=== PATIENT | male | born 1955 | race Caucasian/White ===

== ENCOUNTER → 2017-11-05 | Outpatient (CLI) | payer MEDICARE ==
[~2017-11-05] MED LIST: AMBIEN CR12.5 MG PO; ATIVAN0.5 MG PO; ATIVAN1 MG PO; BACTRIM DS 8001 TA1 PO; CIALIS2.5 MG PO; DEPO TESTOS200 MG/ML IM; EFFEXOR XR75 MG PO; FISH OIL CONC1000 M1 PO; HYDROCODONE BIT1 T11 PO; L-LYSINE500 M2 PO; LISINOPRIL10 M1 PO; RANITIDINE HCL150 M1 PO; VENLAFAXINE HYD75 MG PO; VIT B6 PO; VIT C PO; VIT D PO
[2017-11-05 10:54] LABS: BASO % 0.3 % (0.0-1.0); EOS # 0.1 10*3/uL (0.0-0.4); EOS % 1.6 % (1.0-4.0); HEMATOCRIT 49.2 % (42.0-52.0); HEMOGLOBIN 15.6 g/dl (14.0-18.0); LYMPH # 1.5 10*3/uL (1.3-4.4); LYMPH % 23.9 % (27.0-41.0); MEAN CELL VOLUME 95.5 fl (80.0-94.0); MEAN CORPUSCULAR HGB 30.3 pg (27.0-31.0); MEAN CORPUSCULAR HGB CONC 31.7 g/dl (33.0-37.0); MEAN PLATELET VOLUME 9.5 fl (9.6-12.3); MONO # 0.4 10*3/uL (0.1-1.0); MONO % 6.5 % (3.0-9.0); NEUT # 4.1 10*3/uL (2.3-7.9); NEUT % 67.4 % (47.0-73.0); PLATELET COUNT AUTOMATED 211 10*3/uL (130-400); RED BLOOD COUNT 5.15 10*6/uL (4.50-5.90); RED CELL DISTRI WIDTH 12.7 % (0-14.5); WHITE BLOOD COUNT 6.1 10*3/uL (4.8-10.8)
[2017-11-05 11:23] LABS: ALBUMIN 3.6 gm/dl (3.1-4.5); ALKALINE PHOSPHATASE 79 U/L (45-117); BUN 13 mg/dl (7-24); CHLORIDE 106 mmol/L (98-107); CHOLESTEROL 220 mg/dL (<200); CREATININE 1.23 mg/dL (0.70-1.30); HDL CHOLESTEROL 41 mg/dl (40-60); LDL CHOLESTEROL 148 mg/dL (9-159); POTASSIUM 4.5 mmol/L (3.5-5.1); SGOT/AST 15 IU/L (3-35); SGPT/ALT 35 U/L (12-78); SODIUM 141 mmol/L (136-145); TOTAL PROTEIN 6.9 gm/dL (6.4-8.2); TRIGLYCERIDES 154 mg/dl (<150); VLDL CHOLESTEROL 31 mg/dL (6-40)
[2017-11-07 11:05] LABS: TESTOSTERONE FREE, (DIRECT) 12.2 pg/mL (6.6-18.1)
== END | disposition home or self-care (01) ==
LOC: LAB 10:17
PROVIDERS: Internal Medicine
DX: I10 Essential (primary) hypertension (principal); G44.209 Tension-type headache, unspecified, not intractable; F52.21 Male erectile disorder; E66.3 Overweight

== ENCOUNTER → 2018-10-08 | Outpatient (CLI) | payer OTHER | END | disposition home or self-care (01) | LOC: CT 12:50 | DX: K42.9 Umbilical hernia without obstruction or gangrene (principal); K76.0 Fatty (change of) liver, not elsewhere classified; K57.30 Diverticulosis of large intestine without perforation or abscess without bleeding; N40.0 Benign prostatic hyperplasia without lower urinary tract symptoms ==

== ENCOUNTER → 2019-02-06 | Outpatient (CLI) | payer OTHER ==
[~2019-02-06] MED LIST changes: +AMBIEN CR6.25 MG PO; +ASPIRIN ADULT L81 M1 PO; +FLOMAX0.4 MG PO; +LIPITOR40 MG PO; +LOPRESSOR50 M1 PO; +PLAVIX75 M1 PO; +REMERON15 M2 PO
== END | disposition home or self-care (01) ==
LOC: LAB 10:55
DX: R97.20 Elevated prostate specific antigen [PSA] (principal)

== ENCOUNTER 2019-03-11 14:12 | Inpatient (IN) | payer OTHER ==
[2019-03-11] VITALS (8 sets, daily range): BP systolic 90–128; BP diastolic 54–71
[~2019-03-11] VITALS: Ht 182.8 cm; Wt 105.9 kg
[~2019-03-11 14:12] MED LIST changes: -AMBIEN CR6.25 MG PO; -ASPIRIN ADULT L81 M1 PO; -FLOMAX0.4 MG PO; -LIPITOR40 MG PO; -LOPRESSOR50 M1 PO; -PLAVIX75 M1 PO; -REMERON15 M2 PO
--- NOTE | 2019-03-11 14:45 | NUR ---
PATIENT STATES HE CANNOT URINATE AT THIS TIME FOR SPEICMEN. REFUSING CATHETER.
--- NOTE | 2019-03-11 14:46 | NUR ---
PATIENT DENIES ANY WOUNDS TO PATIENT.
--- NOTE | 2019-03-11 14:48 | NUR ---
PATIENT TO CT SCAN AT THIS TIME.
--- NOTE | 2019-03-11 14:56 | NUR ---
PATIENT RETURNS FROM CT SCAN AT THIS TIME.
[2019-03-11 15:25] LABS: HEMATOCRIT 36.1 % (42.0-52.0); HEMOGLOBIN 12.2 g/dl (14.0-18.0); MEAN CELL VOLUME 90.7 fl (80.0-94.0); MEAN CORPUSCULAR HGB 30.7 pg (27.0-31.0); MEAN CORPUSCULAR HGB CONC 33.8 g/dl (33.0-37.0); MEAN PLATELET VOLUME 9.9 fl (9.6-12.3); PLATELET COUNT AUTOMATED 151 10*3/uL (130-400); RED BLOOD COUNT 3.98 10*6/uL (4.50-5.90); RED CELL DISTRI WIDTH 12.6 % (0-14.5); WHITE BLOOD COUNT 4.3 10*3/uL (4.8-10.8)
[2019-03-11 15:26] LABS: ALBUMIN 3.3 gm/dl (3.1-4.5); CREATININE 1.59 mg/dL (0.70-1.30); POTASSIUM 2.9 mmol/L (3.5-5.1); TOTAL PROTEIN 6.8 gm/dL (6.4-8.2)
[2019-03-11 15:30] LABS: PLATELET SUFFICIENCY NORMAL (NORMAL); TOTAL CELLS COUNTED 100 #CELLS
--- NOTE | 2019-03-11 15:32 | NUR ---
LAB CALLED WITH CRITICAL LACTIC OF 4.2. DOCTOR NOTIFIED.
--- NOTE | 2019-03-11 15:45 | NUR ---
PATIENT IS CURRENTLY UPRIGHT IN BED AT THIS TIME SPEAKING FULL SENTENCES. PATIENT APPEARS TO BE A&OX4 NOW. STATES THAT HE FEELS BETTER. REQUESTING A MEAL TRAY.
--- NOTE | 2019-03-11 16:20 | NUR ---
DR NOTIFIED OF PATIENT TEMP. DENIES WANTING TO GIVE HIM ANY MORE TYLENOL OR MOTRIN.
--- NOTE | 2019-03-11 17:08 | NUR ---
PATIENT TAKEN UP AT THIS TIME BY THIS NURSE. NO CHANGE IN STATUS.
--- NOTE | 2019-03-11 17:25 | NUR ---
A 64, admitted to , under the services of ANGELA Gregory MD with a diagnosis of SEPSIS. Chief complaint is FEVER. Patient arrived via stretcher from ER. Monitor applied. Initial assessment completed. Vital signs taken and recorded. ANGELA GREGORY MD notified of admission to the unit. Orders received. See assessment for past medical history, medications and allergies. Patient and/or family oriented to unit. [address] visitation policy reviewed. Clothing/patient valuable form completed. JOSE ANNE
[2019-03-11] MEDS ORDERED: PLAVIX75 M1 PO (17:50)
[2019-03-11] MEDS ORDERED: LOPRESSOR50 M1 PO (17:51)
[2019-03-11] MEDS ORDERED: ASPIRIN ADULT L81 M1 PO (17:56)
[2019-03-11] MEDS ORDERED: LIPITOR40 MG PO (18:00)
[2019-03-11] MEDS ORDERED: FLOMAX0.4 MG PO (18:01)
[2019-03-11] MEDS ORDERED: AMBIEN CR6.25 MG PO (18:02)
[2019-03-11] MEDS ORDERED: REMERON15 M2 PO (18:06)
[2019-03-11 19:59] LABS: BILIRUBIN NEGATIVE (NEGATIVE); BLOOD 3+ (NEGATIVE); CLARITY CLOUDY (CLEAR); COLOR YELLOW (YELLOW); GLUCOSE NEGATIVE (NEGATIVE); KETONE TRACE (NEGATIVE); LEUKO ESTERASE 3+ (NEGATIVE); NITRITE NEGATIVE (NEGATIVE); UROBILINOGEN 0.2 E.U./dl (0.2-1.0)
--- NOTE | 2019-03-11 20:09 | NUR ---
DR HERNANDEZ NOTIFIED OF [place]
[2019-03-11 20:13] LABS: BACTERIA 2+; RBC 41-50 rbc/hpf (0-2); WBC 51-100 wbc/hpf (0-5)
[2019-03-12] VITALS: BP 121/89
--- NOTE | 2019-03-12 01:50 | NUR ---
PATIENT GIVEN NORCO PER REQUEST AT THIS TIME FOR CHRONIC PAIN FROM HX BROKEN BACK. PATIENT ALSO C/O CHILLS, TEMPERATURE 98.7/SKIN WARM/DRY. WARM BLANKETS OFFERED, DECLINED. WILL CONT TO MONITOR.
--- NOTE | 2019-03-12 04:50 | NUR ---
DR HERNANDEZ NOTIFIED OF +. NEW ORDERS FOR LEVAQUIN IV DAILY
[2019-03-12 07:13] LABS: HEMATOCRIT 33.1 % (42.0-52.0); HEMOGLOBIN 10.9 g/dl (14.0-18.0); MEAN CELL VOLUME 93.2 fl (80.0-94.0); MEAN CORPUSCULAR HGB 30.7 pg (27.0-31.0); MEAN CORPUSCULAR HGB CONC 32.9 g/dl (33.0-37.0); MEAN PLATELET VOLUME 9.8 fl (9.6-12.3); PLATELET COUNT AUTOMATED 140 10*3/uL (130-400); RED BLOOD COUNT 3.55 10*6/uL (4.50-5.90); RED CELL DISTRI WIDTH 12.9 % (0-14.5); WHITE BLOOD COUNT 8.3 10*3/uL (4.8-10.8)
[2019-03-12 07:54] LABS: BURR CELLS FEW; PLATELET SUFFICIENCY NORMAL (NORMAL); POLYCHROMASIA SLIGHT; ROULEAUX SLIGHT; TOTAL CELLS COUNTED 100 #CELLS
--- NOTE | 2019-03-12 09:00 | NUR ---
Service Tech/Welder in to talk to patient. Patient states lives at home with his and youngest daughter. There are 15 steps in the home. Physician: Dr. Sherie Reeves Pharmacy: [facility] [place] Home health services: none Patient's level of ADLs: INDEPENDENT Patient has working utilities: yes DME: none Follow-up physician's appointment after d/c: he prefers to make his won follow up appt after discharge Does patient want to access PORTAL?: no Discharge plan discussed with patient. He lives at home with his and youngest daughter. He is independent in his ADLs and ambulation. Discussed home health care services and he denies any home needs at this time. When medically stable he will be discharged to home. He states Dr. Reeves said he would be discharged on Friday. BC GNB, +UTI, lactic acid elevated, rocephin. His daughter or will provide transportation on discharge. RUMA WILLETT
[2019-03-12 12:00] VITALS: BP 105/47
[2019-03-12 16:00] VITALS: BP 126/69
[2019-03-12 20:00] VITALS: BP 131/73
--- NOTE | 2019-03-12 20:00 | NUR ---
AWAKE & ALERT. LEAD OFF; REPLACED. IV FLUIDS INFUSING INTO RIGHT ARM WITHOUT DIFFICULTY. SITE WRAPPED DUE TO PATIENT PULLING OUT IV'S. PT. VOICES NO C/O AT THIS TIME; NO DISTRESS NOTED. CALL LIGHT WITHIN REACH.
[2019-03-13] VITALS: BP 143/71
--- NOTE | 2019-03-13 04:00 | NUR ---
RESTING IN BED WITH EYES CLOSED. IV FLUIDS INFUSING ORDERED. CALL LIGHT WITHIN REACH.
[2019-03-13 06:17] LABS: BASO % 0.1 % (0.0-1.0); EOS # 0.1 10*3/uL (0.0-0.4); EOS % 1.2 % (1.0-4.0); HEMOGLOBIN 10.1 g/dl (14.0-18.0); LYMPH % 14.1 % (27.0-41.0); MEAN CELL VOLUME 92.5 fl (80.0-94.0); MEAN CORPUSCULAR HGB 30.1 pg (27.0-31.0); MEAN CORPUSCULAR HGB CONC 32.6 g/dl (33.0-37.0); MEAN PLATELET VOLUME 9.8 fl (9.6-12.3); MONO # 0.7 10*3/uL (0.1-1.0); MONO % 9.7 % (3.0-9.0); NEUT # 5.1 10*3/uL (2.3-7.9); NEUT % 74.2 % (47.0-73.0); PLATELET COUNT AUTOMATED 132 10*3/uL (130-400); RED BLOOD COUNT 3.35 10*6/uL (4.50-5.90); RED CELL DISTRI WIDTH 12.9 % (0-14.5); WHITE BLOOD COUNT 6.8 10*3/uL (4.8-10.8)
[2019-03-13 06:44] LABS: ALBUMIN 2.6 gm/dl (3.1-4.5); ALKALINE PHOSPHATASE 67 U/L (45-117); BUN 15 mg/dl (7-24); CHLORIDE 111 mmol/L (98-107); CREATININE 1.19 mg/dL (0.70-1.30); POTASSIUM 3.6 mmol/L (3.5-5.1); SGOT/AST 66 IU/L (3-35); SGPT/ALT 81 U/L (12-78); SODIUM 140 mmol/L (136-145); TOTAL PROTEIN 5.9 gm/dL (6.4-8.2)
[2019-03-13 08:00] VITALS: BP 124/70
[2019-03-13 12:00] VITALS: BP 104/56
--- NOTE | 2019-03-13 12:17 | NUR ---
Discharge instructions reviewed with patient/family. Patient receptive and verbalizes understanding. Follow-up care arranged. Written instructions given to patient/family. PASTORA RIDLEY
[2019-03-13 16:00] VITALS: BP 114/56
[2019-03-13 20:00] VITALS: BP 133/68
--- NOTE | 2019-03-13 21:40 | NUR ---
PATIENT MEDICATED AT THIS TIME WITH NORCO FOR BACK PAIN A 09/07 AT THIS TIME
--- NOTE | 2019-03-13 22:20 | NUR ---
PATIENT STATED THAT HIS PAIN WAS BETTER A 3/10 AT THIS TIME. PATIENT ALERT AND ORIENTED, RESTING IN A POSITION OF COMFORT IN BED AT THIS TIME.
--- NOTE | 2019-03-13 23:25 | NUR ---
24 HOUR CHART CHECK COMPLETE
[2019-03-14] VITALS: BP 103/57
--- NOTE | 2019-03-14 06:59 | NUR ---
NOTIFIED BY [facility] OF POSITIVE BLOOD CULTURES FOR [facility] AT 0654. DR. HERNANDEZ NOTIFIED OF BLOOD CULTURE RESULTS, NO ORDERS RECEIVED.
--- NOTE | 2019-03-14 10:05 | NUR ---
MEDICATED WITH NORCO PER PRN ORDER FOR COMPLAINTS OF CHRONIC BACK PAIN. WILL MONITOR FOR EFFECTIVENESS.
[2019-03-14 12:00] VITALS: BP 134/71
--- NOTE | 2019-03-14 12:00 | NUR ---
PT RESTING IN BED, NO DISTRESS NOTED. EARLIER NORCO HELPED WITH BACK PAIN.
[2019-03-14 16:00] VITALS: BP 141/60
--- NOTE | 2019-03-14 16:03 | NUR ---
PT RESTING IN BED, NO DISTRESS NOTED.
--- NOTE | 2019-03-14 17:03 | NUR ---
MEDICATED WITH ZOFRAN PER PRN ORDER FOR COMPLAINTS OF NAUSEA. WILL MONITOR FOR EFFECTIVENESS.
[2019-03-14 20:00] VITALS: BP 151/77
--- NOTE | 2019-03-14 20:15 | NUR ---
PATIENT ASSESSMENT COMPLETED AT THIS TIME WITHOUT INCIDENT. PATIENT SEATED IN BED IN A POSITION OF COMFORT, RESPIRATIONS EASY AND NON-LABORED AT THIS TIME. FAMILY AT BEDSIDE. CALL LIGHT WITHIN REACH, WILL CONTINUE TO MONITOR.
--- NOTE | 2019-03-14 22:42 | NUR ---
PATIENT MEDICATED WITH PRN NORCO AT THIS TIME FOR PATIENT COMPLAINT OF 7/10 PAIN IN HIS LOWER BACK AND NECK. PATIENT ALERT AND ORIENTED. CALL LIGHT WITHIN REACH WILL CONTINUE TO MONITOR.
--- NOTE | 2019-03-14 23:24 | NUR ---
PATIENT RESTING IN BED IN A POSITION OF COMFORT IN BED, RESPIRATIONS EASY AND NON-LABORED AT THIS TIME. NO SIGNS OR SYMPTOMS OF PAIN NOTED. CALL LIGHT WITHIN REACH WILL CONTINUE TO MONITOR.
[2019-03-15] VITALS: BP 128/65
[2019-03-15 08:00] VITALS: BP 152/72
--- NOTE | 2019-03-15 08:30 | NUR ---
PT AWAKE, ALERT, & ORIENTED X3. LUNGS CLEAR T/O, ROOM AIR. ABD SOFT & NONTENDER. PT C/O NAUSEA AND MEDICATED WITH IV ZOFRAN PER ORDER. PER PATIENT, STOOLS HAVE BECOMRE MORE FORMED TODAY. NO EDEMA NOTED. AMBULATORY AROUND ROOM. CALL LIGHT WITHIN REACH.
--- NOTE | 2019-03-15 09:00 | NUR ---
[employer] Operator in to see patient. No new needs or request at this time. When medically stable he will be discharged to home. He denies any home needs. BC + for E. coli, on levaquin and rocephin. Elevated LFTs and lactic acid, Hgb 10.1 from 12.2.
--- NOTE | 2019-03-15 09:30 | NUR ---
PER PATIENT, NAUSEA MEDICINE HAS BEEN EFFECTIVE. NO FURTHER COMPLAINTS AT THIS TIME.
--- NOTE | 2019-03-15 10:41 | NUR ---
NORCO 1 TAB GIVEN PO PER REQUEST. PAIN RATED 8/10 ON PAIN SCALE. PATIENTS "THOBBING THROUGHOUT BACK AND WHOLE BODY". WILL CONTINUE TO ASSESS. TIM MCKAY SPJHONY
[2019-03-15 12:00] VITALS: BP 122/83
--- NOTE | 2019-03-15 12:00 | NUR ---
PER PATIENT, PAIN HAS BEEN IMPROVED. NORCO EFFECTIVE. NO FURTHER COMPLAINTS.
[2019-03-15 16:00] VITALS: BP 157/78
[2019-03-15 20:00] VITALS: BP 123/60
--- NOTE | 2019-03-15 20:00 | NUR ---
SITTING IN BED. RESPIRATIONS EASY. LUNGS DIMINISHED, CLEAR. PULSE OX 98% RA. C/O BURNING AND HESITATION UPON URINATION. CALL LIGHT WITHIN REACH. QUESTIONS/CONCERNS ADDRESSED. DAUGHTER PRESENT AT BEDSIDE
--- NOTE | 2019-03-15 21:16 | NUR ---
24 HR chart check completed.
--- NOTE | 2019-03-15 21:51 | NUR ---
REQUESTED AND RECEIVED NORCO PER PRN ORDER FOR COMPLAINTS OF CHRONIC BACK PAIN AND ABD PAIN RATING A 7. CALL LIGHT WITHIN REACH. WILL MONITOR FOR EFFECTIVENESS
--- NOTE | 2019-03-15 23:00 | NUR ---
MEDS EFFECTIVE. SLEEPING. RESPIRATIONS EASY. CALL LIGHT WITHIN REACH
[2019-03-16] VITALS: BP 136/64
--- NOTE | 2019-03-16 | NUR ---
SLEEPING WITH NO DISTRESS NOTED. RESPIRATIONS EASY. VSS. CALL LIGHT WITHIN REACH
--- NOTE | 2019-03-16 06:00 | NUR ---
SLEPT THROUGHOUT NIGHT WITH NO DISTRESS NOTED. RESPIRATIONS EASY. CALL LIGHT WITHIN REACH. NO VOICED COMPLAINTS THIS SHIFT
[2019-03-16 06:19] LABS: HEMATOCRIT 32.3 % (42.0-52.0); HEMOGLOBIN 10.8 g/dl (14.0-18.0); MEAN CELL VOLUME 91.8 fl (80.0-94.0); MEAN CORPUSCULAR HGB 30.7 pg (27.0-31.0); MEAN CORPUSCULAR HGB CONC 33.4 g/dl (33.0-37.0); MEAN PLATELET VOLUME 9.9 fl (9.6-12.3); PLATELET COUNT AUTOMATED 225 10*3/uL (130-400); RED BLOOD COUNT 3.52 10*6/uL (4.50-5.90); RED CELL DISTRI WIDTH 12.4 % (0-14.5)
[2019-03-16 06:47] LABS: ALBUMIN 2.8 gm/dl (3.1-4.5); ALKALINE PHOSPHATASE 86 U/L (45-117); BUN 13 mg/dl (7-24); CHLORIDE 111 mmol/L (98-107); CREATININE 1.01 mg/dL (0.70-1.30); POTASSIUM 3.9 mmol/L (3.5-5.1); SGOT/AST 44 IU/L (3-35); SGPT/ALT 93 U/L (12-78); SODIUM 142 mmol/L (136-145); TOTAL PROTEIN 6.5 gm/dL (6.4-8.2)
[2019-03-16 07:06] LABS: TOTAL CELLS COUNTED 100 #CELLS
[2019-03-16 07:07] LABS: PLATELET SUFFICIENCY NORMAL (NORMAL); POLYCHROMASIA SLIGHT
[2019-03-16 07:08] LABS: ROULEAUX SLIGHT
[2019-03-16 08:00] VITALS: BP 150/60
--- NOTE | 2019-03-16 10:30 | NUR ---
Industrial Furnace Fabricator in to see patient. No new needs or request at this time. When medically stable he will be discharged to home. He denies any home needs. BC + for E. coli, on levaquin and rocephin. Awaiting second set of BC results from 03/14.
[2019-03-16 12:00] VITALS: BP 144/63
[2019-03-16 16:00] VITALS: BP 158/77
[2019-03-16 20:00] VITALS: BP 140/58
--- NOTE | 2019-03-16 20:48 | NUR ---
PRN NORCO GIVEN PER PATIENT REQUEST FOR HEADACHE RATING A 6/10 AND ZOFRAN GIVEN FOR UPSET STOMACH. CALL LIGHT IS WITHIN REACH, WILL MONITOR EFFECT.
--- NOTE | 2019-03-16 21:27 | NUR ---
PRN NORCO AND ZOFRAN EFFECTIVE PER PATIENT. PRN REMERON GIVEN FOR C/O INSOMNIA. CALL LIGHT IS WITHN REACH. WILL MONITOR EFFECT.
--- NOTE | 2019-03-16 22:22 | NUR ---
PRN REMERON SEEMS EFFECTIVE, PATIENT IS SLEEPING WITH EASY AND REGULAR RESPERS ON ROOM AIR. CALL LIGHT IS WITHN REACH.
[2019-03-17] VITALS: BP 109/39
--- NOTE | 2019-03-17 06:17 | NUR ---
24 HR. CHART CHECK COMPLETE.
--- NOTE | 2019-03-17 06:30 | NUR ---
PATIENT SLEPT THROUGHOUT NIGHT WITH EASY AND REGULAR RESPERS ON ROOM AIR. CALL LIGHT IS WITHIN REACH.
--- NOTE | 2019-03-17 07:47 | NUR ---
VS STABLE- KERVIN, A&O X3, COLOR IS GOOD, SKIN IS WARM DRY AND INTACT, SKIN TURGOR IS NON-TENTING, CAPILLARY REFILL <3 SECONDS, HEART SOUNDS NORMAL, 72 BPM, LUNG SOUNDS DIMINISHED THROUGHOUT, PO2 97% ON ROOM AIR, ABDOMEN SOFT NON-DISTENDED NON-TENDER, BS X4, IV SITE RIGHT AC INTACT NO SIGN OR SYMPTOMS OF INFECTION, STATES PAIN AT "2/10", PATIENT PLEASANT AND COOPERATIVE, NO FURTHER COMPLAINTS AT THIS TIME WILL CONTINUE TO ASSESS. TIM MCKAY SPANDREACC
[2019-03-17 08:04] VITALS: BP 120/70
--- NOTE | 2019-03-17 08:45 | NUR ---
NORCO 1 TAB GIVEN PO PER PT REQUEST. PAIN 7/10 ON SCALE. PT STATED "POUNDING HEADACHE AND BACK THROBBING". WILL CONTINUE TO ASSESS. TIM MCKAY SPCC
[2019-03-17] MEDS ORDERED: SEPTDS PO (08:47)
[2019-03-17] MEDS ORDERED: HYDROCODONE-AC1 EAC1 PO (08:50)
--- NOTE | 2019-03-17 09:55 | NUR ---
PT STATED NORCO TABLET WAS EFFECTIVE. RATED PAIN 2/10. TIM COLVIN
--- NOTE | 2019-03-17 11:25 | NUR ---
Discharge instructions reviewed with patient/family. Patient receptive and verbalizes understanding. Follow-up care arranged. Written instructions given to patient/family. Heplock removed. All belongings with patient. Discharged via wheelchair. Condition stable. Kelley Mckenzie SPANDREACC CLAUDIA GARY
== END 2019-03-17 11:25 | disposition home or self-care (01) | DRG 871 ==
LOC: ED 14:12 → EDHOLD 16:39 → 5E 16:39 → 4E 16:39 → 5E 03-15 07:44
PROVIDERS: Emergency Medicine; ADMIT Internal Medicine
DX: A41.51 Sepsis due to Escherichia coli [E. coli] (principal); N17.0 Acute kidney failure with tubular necrosis; N41.0 Acute prostatitis; F33.1 Major depressive disorder, recurrent, moderate; E46 Unspecified protein-calorie malnutrition; E87.2 Acidosis; F51.01 Primary insomnia; E87.6 Hypokalemia; N43.3 Hydrocele, unspecified; N50.819 Testicular pain, unspecified; N40.0 Benign prostatic hyperplasia without lower urinary tract symptoms; I12.9 Hypertensive chronic kidney disease with stage 1 through stage 4 chronic kidney disease, or unspecified chronic kidney disease; N18.3 Chronic kidney disease, stage 3 (moderate); Z68.31 Body mass index [BMI] 31.0-31.9, adult; Z79.899 Other long term (current) drug therapy; Z79.82 Long term (current) use of aspirin; Z87.891 Personal history of nicotine dependence; Z86.73 Personal history of transient ischemic attack (TIA), and cerebral infarction without residual deficits

== ENCOUNTER → 2019-03-29 | Outpatient (CLI) | payer OTHER ==
[~2019-03-29] MED LIST changes: +AMBIEN CR6.25 MG PO; +ASPIRIN ADULT L81 M1 PO; +FLOMAX0.4 MG PO; +HYDROCODONE-AC1 EAC1 PO; +LIPITOR40 MG PO; +LOPRESSOR50 M1 PO; +PLAVIX75 M1 PO; +REMERON15 M2 PO; +SEPTDS PO
[2019-03-29 10:06] LABS: BASO % 0.2 % (0.0-1.0); EOS # 0.1 10*3/uL (0.0-0.4); EOS % 1.8 % (1.0-4.0); HEMATOCRIT 37.7 % (42.0-52.0); HEMOGLOBIN 12.1 g/dl (14.0-18.0); LYMPH # 1.9 10*3/uL (1.3-4.4); MEAN CELL VOLUME 94.3 fl (80.0-94.0); MEAN CORPUSCULAR HGB 30.3 pg (27.0-31.0); MEAN CORPUSCULAR HGB CONC 32.1 g/dl (33.0-37.0); MEAN PLATELET VOLUME 9.2 fl (9.6-12.3); MONO # 0.3 10*3/uL (0.1-1.0); MONO % 6.3 % (3.0-9.0); NEUT # 2.6 10*3/uL (2.3-7.9); NEUT % 52.3 % (47.0-73.0); PLATELET COUNT AUTOMATED 307 10*3/uL (130-400); RED CELL DISTRI WIDTH 12.3 % (0-14.5); WHITE BLOOD COUNT 4.9 10*3/uL (4.8-10.8)
[2019-03-29 10:38] LABS: ALBUMIN 3.7 gm/dl (3.1-4.5); ALKALINE PHOSPHATASE 111 U/L (45-117); BUN 21 mg/dl (7-24); CHLORIDE 112 mmol/L (98-107); CREATININE 1.06 mg/dL (0.70-1.30); SGOT/AST 26 IU/L (3-35); SGPT/ALT 66 U/L (12-78); SODIUM 142 mmol/L (136-145); TOTAL PROTEIN 7.1 gm/dL (6.4-8.2)
== END | disposition home or self-care (01) ==
LOC: LAB 09:40
PROVIDERS: Internal Medicine
DX: A41.9 Sepsis, unspecified organism (principal)

== ENCOUNTER → 2020-03-16 | Outpatient (CLI) | payer OTHER ==
[2020-03-16 12:03] LABS: BASO % 0.5 % (0.0-1.0); EOS # 0.1 10*3/uL (0.0-0.4); HEMATOCRIT 40.6 % (42.0-52.0); LYMPH # 1.5 10*3/uL (1.3-4.4); LYMPH % 23.3 % (27.0-41.0); MEAN CELL VOLUME 92.3 fl (80.0-94.0); MEAN CORPUSCULAR HGB 29.8 pg (27.0-31.0); MEAN CORPUSCULAR HGB CONC 32.3 g/dl (33.0-37.0); MEAN PLATELET VOLUME 9.7 fl (9.6-12.3); MONO # 0.4 10*3/uL (0.1-1.0); MONO % 6.7 % (3.0-9.0); NEUT # 4.3 10*3/uL (2.3-7.9); NEUT % 67.3 % (47.0-73.0); PLATELET COUNT AUTOMATED 232 10*3/uL (130-400); RED CELL DISTRI WIDTH 11.9 % (0-14.5); WHITE BLOOD COUNT 6.4 10*3/uL (4.8-10.8)
[2020-03-16 12:33] LABS: ALBUMIN 3.9 gm/dl (3.1-4.5); ALKALINE PHOSPHATASE 109 U/L (45-117); BUN 15 mg/dl (7-24); CHLORIDE 112 mmol/L (98-107); CHOLESTEROL 157 mg/dL (<200); CREATININE 1.08 mg/dL (0.70-1.30); FREE T4 0.89 ng/dl (0.76-1.46); HDL CHOLESTEROL 48 mg/dl (40-60); LDL CHOLESTEROL 79 mg/dL (9-159); POTASSIUM 4.2 mmol/L (3.5-5.1); SGOT/AST 36 IU/L (3-35); SGPT/ALT 88 U/L (12-78); SODIUM 144 mmol/L (136-145); TOTAL PROTEIN 7.2 gm/dL (6.4-8.2); TRIGLYCERIDES 152 mg/dl (<150); VLDL CHOLESTEROL 30 mg/dL (6-40)
[2020-03-16 12:54] LABS: VITAMIN D, 25-HYDROXY 49.6 ng/mL (30-100)
== END | disposition home or self-care (01) ==
LOC: LAB 10:49
PROVIDERS: ATTEND Internal Medicine
DX: D52.9 Folate deficiency anemia, unspecified (principal); D51.9 Vitamin B12 deficiency anemia, unspecified; M06.9 Rheumatoid arthritis, unspecified; R53.81 Other malaise; E55.9 Vitamin D deficiency, unspecified; I10 Essential (primary) hypertension; K57.91 Diverticulosis of intestine, part unspecified, without perforation or abscess with bleeding; K21.00 Gastro-esophageal reflux disease with esophagitis, without bleeding; R19.00 Intra-abdominal and pelvic swelling, mass and lump, unspecified site; Z12.5 Encounter for screening for malignant neoplasm of prostate

== ENCOUNTER → 2020-04-05 | Outpatient (CLI) | payer OTHER ==
[2020-04-05 12:10] LABS: ALBUMIN 3.9 gm/dl (3.1-4.5); BILIRUBIN, DIRECT 0.2 mg/dL (0.0-0.2)
[2020-04-06 08:12] LABS: HEP B CORE AB, IGM Negative (Negative); HEPATITIS B SURFACE AG Negative (Negative); HEPATITIS C VIRUS ANTIBODY <0.1 s/co (0.0-0.9)
== END | disposition home or self-care (01) ==
LOC: LAB 10:32 → NM 11:00
PROVIDERS: ATTEND Internal Medicine
DX: E80.7 Disorder of bilirubin metabolism, unspecified (principal); R94.5 Abnormal results of liver function studies; B18.9 Chronic viral hepatitis, unspecified; R74.8 Abnormal levels of other serum enzymes; R77.9 Abnormality of plasma protein, unspecified; R74.01 Elevation of levels of liver transaminase levels; R77.0 Abnormality of albumin

== ENCOUNTER → 2020-04-26 | Outpatient (CLI) | payer OTHER | END | disposition home or self-care (01) | LOC: LAB 10:07 | PROVIDERS: ATTEND Internal Medicine | DX: R97.20 Elevated prostate specific antigen [PSA] (principal) ==

== ENCOUNTER → 2020-12-25 | Outpatient (CLI) | payer OTHER ==
[2020-12-25 10:35] LABS: BASO % 0.3 % (0.0-1.0); EOS # 0.1 10*3/uL (0.0-0.4); EOS % 2.2 % (1.0-4.0); HEMATOCRIT 42.3 % (42.0-52.0); LYMPH # 1.8 10*3/uL (1.3-4.4); LYMPH % 27.6 % (27.0-41.0); MEAN CORPUSCULAR HGB 30.3 pg (27.0-31.0); MEAN CORPUSCULAR HGB CONC 32.6 g/dl (33.0-37.0); MEAN PLATELET VOLUME 9.6 fl (9.6-12.3); MONO # 0.4 10*3/uL (0.1-1.0); MONO % 6.5 % (3.0-9.0); NEUT % 63.2 % (47.0-73.0); PLATELET COUNT AUTOMATED 218 10*3/uL (130-400); RED BLOOD COUNT 4.55 10*6/uL (4.50-5.90); RED CELL DISTRI WIDTH 12.6 % (0-14.5); WHITE BLOOD COUNT 6.4 10*3/uL (4.8-10.8)
[2020-12-25 10:59] LABS: ALBUMIN 3.7 gm/dl (3.1-4.5); BUN 14 mg/dl (7-24); CHLORIDE 110 mmol/L (98-107); CHOLESTEROL 166 mg/dL (<200); CREATININE 1.12 mg/dL (0.70-1.30); FREE T4 0.86 ng/dl (0.76-1.46); POTASSIUM 3.7 mmol/L (3.5-5.1); SGOT/AST 95 IU/L (3-35); SGPT/ALT 157 U/L (12-78); SODIUM 140 mmol/L (136-145); TOTAL PROTEIN 7.3 gm/dL (6.4-8.2); TRIGLYCERIDES 163 mg/dl (<150)
[2020-12-25 11:03] LABS: VITAMIN D, 25-HYDROXY 40.3 ng/mL (30-100)
[2020-12-25 11:05] LABS: ALKALINE PHOSPHATASE 119 U/L (45-117); LDL CHOLESTEROL 82 mg/dL (9-159)
== END | disposition home or self-care (01) ==
LOC: LAB 10:01
PROVIDERS: ATTEND Internal Medicine
DX: C61 Malignant neoplasm of prostate (principal); E78.5 Hyperlipidemia, unspecified; I10 Essential (primary) hypertension; E55.9 Vitamin D deficiency, unspecified; N40.1 Benign prostatic hyperplasia with lower urinary tract symptoms; Z00.00 Encounter for general adult medical examination without abnormal findings

== ENCOUNTER → 2021-01-04 | Outpatient (CLI) | payer OTHER | END | disposition home or self-care (01) | LOC: US 08:52 | PROVIDERS: ATTEND Internal Medicine | DX: K80.20 Calculus of gallbladder without cholecystitis without obstruction (principal); K76.0 Fatty (change of) liver, not elsewhere classified; R94.5 Abnormal results of liver function studies ==

== ENCOUNTER → 2021-02-16 | Day surgery (SDC) | payer OTHER ==
[2021-02-13 13:55] VITALS: BP 140/46
[~2021-02-16] VITALS: Ht 186.6 cm; Wt 109.3 kg
[2021-02-16] VITALS (7 sets, daily range): BP systolic 120–151; BP diastolic 57–76
[~2021-02-16] MED LIST changes: +BENTYL10 MG/1 ML PO; +COLACE100 MG PO; +NORVASC10 MG PO; +PEPCID AC20 MG PO; +PERCOCET 5-3251 EACH PO; +PROSCAR5 M1 PO; +ZOFRAN4 MG PO
== END | disposition home or self-care (01) ==
LOC: SDC 02-13 13:15
PROVIDERS: ATTEND Surgery
DX: K80.10 Calculus of gallbladder with chronic cholecystitis without obstruction (principal); F41.9 Anxiety disorder, unspecified; I10 Essential (primary) hypertension; F32.9 Major depressive disorder, single episode, unspecified; E78.00 Pure hypercholesterolemia, unspecified; G47.00 Insomnia, unspecified; Z85.828 Personal history of other malignant neoplasm of skin; Z79.899 Other long term (current) drug therapy; Z20.822 Contact with and (suspected) exposure to COVID-19

== ENCOUNTER → 2021-06-27 | Outpatient (CLI) | payer OTHER ==
[2021-06-27 10:54] LABS: BASO % 0.3 % (0.0-1.0); EOS # 0.1 10*3/uL (0.0-0.4); EOS % 1.7 % (1.0-4.0); HEMATOCRIT 42.6 % (42.0-52.0); LYMPH # 1.5 10*3/uL (1.3-4.4); LYMPH % 22.4 % (27.0-41.0); MEAN CELL VOLUME 90.4 fl (80.0-94.0); MEAN CORPUSCULAR HGB 30.6 pg (27.0-31.0); MEAN CORPUSCULAR HGB CONC 33.8 g/dl (33.0-37.0); MEAN PLATELET VOLUME 9.5 fl (9.6-12.3); MONO # 0.4 10*3/uL (0.1-1.0); MONO % 6.2 % (3.0-9.0); NEUT # 4.6 10*3/uL (2.3-7.9); NEUT % 69.2 % (47.0-73.0); PLATELET COUNT AUTOMATED 230 10*3/uL (130-400); RED BLOOD COUNT 4.71 10*6/uL (4.50-5.90); WHITE BLOOD COUNT 6.6 10*3/uL (4.8-10.8)
[2021-06-27 11:19] LABS: BUN 13 mg/dl (7-24); CHLORIDE 111 mmol/L (98-107); SODIUM 143 mmol/L (136-145)
[2021-06-27 11:24] LABS: ALKALINE PHOSPHATASE 131 U/L (45-117); CHOLESTEROL 135 mg/dL (<200); CREATININE 1.11 mg/dL (0.70-1.30); FREE T4 0.98 ng/dl (0.76-1.46); LDL CHOLESTEROL 56 mg/dL (9-159); SGOT/AST 76 IU/L (3-35); SGPT/ALT 157 U/L (12-78); TOTAL PROTEIN 7.2 gm/dL (6.4-8.2); TRIGLYCERIDES 136 mg/dl (<150)
[2021-06-27 12:14] LABS: VITAMIN D, 25-HYDROXY 42.2 ng/mL (30-100)
== END | disposition home or self-care (01) ==
LOC: LAB 10:19
PROVIDERS: Internal Medicine; ATTEND Urology
DX: D52.9 Folate deficiency anemia, unspecified (principal); D51.9 Vitamin B12 deficiency anemia, unspecified; E55.9 Vitamin D deficiency, unspecified; E03.9 Hypothyroidism, unspecified; Z13.0 Encounter for screening for diseases of the blood and blood-forming organs and certain disorders involving the immune mechanism; Z13.1 Encounter for screening for diabetes mellitus; Z13.220 Encounter for screening for lipoid disorders; Z13.228 Encounter for screening for other metabolic disorders; Z13.6 Encounter for screening for cardiovascular disorders; Z13.89 Encounter for screening for other disorder; R97.20 Elevated prostate specific antigen [PSA]

== ENCOUNTER → 2023-05-12 | Outpatient (CLI) | payer OTHER ==
[2023-05-12 10:04] LABS: BASO % 0.4 % (0.0-1.0); EOS # 0.2 10*3/uL (0.0-0.4); EOS % 2.3 % (1.0-4.0); HEMATOCRIT 43.1 % (42.0-52.0); LYMPH # 1.9 10*3/uL (1.3-4.4); LYMPH % 24.8 % (27.0-41.0); MEAN CELL VOLUME 92.1 fl (80.0-94.0); MEAN CORPUSCULAR HGB 30.3 pg (27.0-31.0); MEAN CORPUSCULAR HGB CONC 32.9 g/dl (33.0-37.0); MEAN PLATELET VOLUME 9.6 fl (9.6-12.3); MONO # 0.5 10*3/uL (0.1-1.0); NEUT # 5.1 10*3/uL (2.3-7.9); NEUT % 65.2 % (47.0-73.0); PLATELET COUNT AUTOMATED 212 10*3/uL (130-400); RED BLOOD COUNT 4.68 10*6/uL (4.50-5.90); RED CELL DISTRI WIDTH 12.9 % (0-14.5); WHITE BLOOD COUNT 7.7 10*3/uL (4.8-10.8)
[2023-05-12 10:32] LABS: ALKALINE PHOSPHATASE 119 U/L (46-116); BUN 11 mg/dl (9-23); CHLORIDE 110 mmol/L (98-107); CHOLESTEROL 178 mg/dL (<200); FREE T4 0.93 ng/dl (0.89-1.76); LDL CHOLESTEROL 87 mg/dL (9-159); POTASSIUM 3.9 mmol/L (3.4-5.1); SGPT/ALT 65 U/L (5-49); TOTAL PROTEIN 7.1 gm/dL (6.0-8.0); TRIGLYCERIDES 227 mg/dl (<150)
[2023-05-12 10:33] LABS: VITAMIN D, 25-HYDROXY 46.4 ng/mL (30-100)
== END | disposition home or self-care (01) ==
LOC: LAB 09:20
PROVIDERS: ATTEND Internal Medicine
DX: Z12.5 Encounter for screening for malignant neoplasm of prostate (principal); Z13.0 Encounter for screening for diseases of the blood and blood-forming organs and certain disorders involving the immune mechanism; Z13.1 Encounter for screening for diabetes mellitus; Z13.21 Encounter for screening for nutritional disorder; Z13.220 Encounter for screening for lipoid disorders; Z13.228 Encounter for screening for other metabolic disorders; Z13.29 Encounter for screening for other suspected endocrine disorder; Z13.89 Encounter for screening for other disorder; Z13.9 Encounter for screening, unspecified; I10 Essential (primary) hypertension; F41.1 Generalized anxiety disorder; F33.0 Major depressive disorder, recurrent, mild; E55.9 Vitamin D deficiency, unspecified